=== PATIENT | female | born 1930 | race Caucasian/White ===

== ENCOUNTER 2016-12-15 02:31 | Emergency (ER) | payer MEDICARE, OTHER ==
--- NOTE | ~2016-12-15 | CT16 ---
[facility] A Service [facility] RADIOLOGY TEXT RESULTS PATIENT: BRAD CARDONA LOCATION: SED : 30 UNIT #: [id number] AGE: [address]: Brandon Pride MD SEX: F ORDER DR: [id number] [address] [address] [id number] MR#: [id number] Acc #: [id number] NAME: BRAD CARDONA : 1930 SEX: F STUDY DATE/TIME: 12/15/2016 3:44 UNIT: SED ROOM: STUDY DESCRIPTION: CT Angio Chest for PE Attending Physician: Brandon Pride M.D. Ordering Physician: Brandon Pride M.D. Primary Care Physician: Qasim Shah M.D. MEDICAL IMAGING REPORT This report is preliminary unless electronic signature is present. EXAM CT chest with pulmonary embolism protocol. HISTORY Chest tightness and shortness of air and pain in shoulder blades for 1 week which is worse tonight. TECHNIQUE The patient was given 80 mL of Isovue-370 and spiral imaging was performed through the chest. 3-D reconstructions of the pulmonary arteries were generated. This CT exam was performed with one or more of the following radiation dose reduction techniques: automatic exposure control, adjustment of mA and/or kV according to patient size, and iterative reconstruction. FINDINGS There is mild interstitial prominence present and there is a calcified granuloma in the right lung. There is minimal fluid in the major fissure. There is adequate opacification of the pulmonary arteries and there is no CT evidence of pulmonary embolus. Aorta is normal in size and there is no dissection. The visualized portions of the upper abdomen shows mild enlargement of the mid aorta measuring about 3 cm in diameter. IMPRESSION 1. There is no CT evidence of pulmonary embolus. 2. There is mild interstitial prominence with a small right pleural effusion suggesting perhaps early CHF. 3. The lowest image of the study shows slight enlargement of the infrarenal aorta measuring 2.9 cm in diameter. [facility] A Service of [facility] RADIOLOGY TEXT RESULTS PATIENT: BRAD CARDONA LOCATION: [facility] : 30 UNIT #: [id number] AGE: [address]: Brandon Pride MD SEX: F ORDER DR: Dictated by... Hu Dorantes M.D. THIS IS AN ELECTRONICALLY VERIFIED REPORT Hu Dorantes M.D. at 12/15/2016 1:24 PM CODY/kemi TD: 12/15/2016 09:26 JOB #: [id number] MEDICAL IMAGING REPORT Page 1 of 1
--- NOTE | ~2016-12-15 | EKG ---
PATIENT: BRAD CARDONA UNIT #: [id number] Ventricular Rate: 75 BPM Atrial Rate: 75 BPM P-R Interval: 180 ms QRS Duration: 92 ms Q-T Interval: 396 ms QTC Calculation(Bezet): 442 ms P [place]: 64 degrees Calculated R [place]: 19 degrees Calculated T [place]: -101 degrees Diagnosis Line: Normal sinus rhythm Diagnosis Line: Marked ST abnormality, possible inferior Diagnosis Line: subendocardial injury Diagnosis Line: Abnormal ECG Diagnosis Line: Diagnosis Line: Confirmed by DELORES BASHIR MD ([id number]) on 12/25/2016 Diagnosis Line: 11:48:57 AM INTERPRETING MD: KRYSTEN MEZA
[~2016-12-15 02:31] MED LIST: ASPIRIN81 M2 PO; CARDIZEM CD180 M1 PO; KRILL OIL500 MG PO; LIPITOR40 MG PO; NATURAL VITA400 UNI2 PO; NEXIUM PO; SYNTHROID88 MCG PO; TOPROL XL PO; VOLTAREN100 GM TOP; WOMEN'S DAILY1 EACH PO; ZYRTEC10 M1 PO
[2016-12-15 02:34] LABS: BASOPHIL# 0.1 X10e3 (0-0.3); BASOPHIL% 0.9 % (0-2.5); EOSINOPHIL# 0.1 X10e3 (0-0.7); EOSINOPHIL% 0.7 % (0.0-7.0); HEMATOCRIT 22.3 % (35.0-45.0); HEMOGLOBIN 7.3 gm/dL (12.0-16.0); LYMPHOCYTE# 3.5 X10e3 (1.0-3.5); LYMPHOCYTE% 41.7 % (17.0-45.0); MEAN CELL VOLUME 90.5 FL (83-96); MEAN CORPUSCULAR HEMOGLOBIN 29.7 PG (28-34); MEAN CORPUSCULAR HGB CONC 32.8 g/dL (30-36); MEAN PLATELET VOLUME 8.1 FL (6.5-11.5); MONOCYTE# 0.7 X10e3 (0-1.0); MONOCYTE% 8.4 % (3.0-12.0); NEUTROPHIL# 4.1 X10e3 (1.5-7.1); NEUTROPHIL% 48.3 % (40-75); PLATELET COUNT 240 X10e3 (140-420); RED BLOOD COUNT 2.46 X10e (3.90-5.30); RED CELL DISTRIBUTION WIDTH 14.2 % (11.0-15.5); WHITE BLOOD COUNT 8.4 X10e3 (4.0-10.5)
[2016-12-15 02:35] LABS: DIFF IND YES; PROTHROMBIN TIME (PATIENT) 22.6 SECONDS (9.5-12.4)
[2016-12-15 02:37] LABS: POC - CKMB <1.0 ng/mL (0.0-7.9); POC - TROPONIN <0.05 ng/mL (<=0.05)
[2016-12-15] MEDS ORDERED: DILTIAZEM 24HR360 MG PO (02:42)
[2016-12-15 02:43] LABS: PARTIAL THROMBOPLASTIN TIME 32.1 SECONDS (25.6-38.1)
[2016-12-15 02:50] LABS: ALBUMIN SERUM 3.5 g/dL (3.5-5.0); BILIRUBIN, DIRECT 0.2 mg/dL (0.0-0.2); BILIRUBIN,INDIRECT 0.6 mg/dL (0.0-0.9); BILIRUBIN,TOTAL 0.8 mg/dL (0.2-2.0); BUN/CREATININE RATIO 28.88; CALCIUM SERUM 8.7 mg/dL (8.4-10.2); CREATININE SERUM 0.9 mg/dL (0.6-1.4); GLOM FILT RATE Estimated 57.9 mL/min (>60); MAGNESIUM 1.9 mg/dL (1.6-3.0); PROTEIN TOTAL SERUM 6.5 g/dL (6.0-8.3)
[2016-12-15 02:57] LABS: PLATELET ESTIMATE NORMAL (NORMAL)
[2016-12-15 02:58] LABS: ANISOCYTOSIS SL; HYPOCHROMIA SL; POIKILOCYTOSIS SL; POLYCHROMASIA SL
[2016-12-15 02:59] LABS: OVALOCYTES PRESENT
[2016-12-15 04:08] LABS: POC - CKMB <1.0 ng/mL (0.0-7.9); POC - TROPONIN <0.05 ng/mL (<=0.05)
== END 2016-12-15 04:55 | disposition home or self-care (01) ==
LOC: SED 02:31
PROVIDERS: Emergency Medicine
DX: R07.89 Other chest pain (principal); R06.02 Shortness of breath; M54.9 Dorsalgia, unspecified; D64.9 Anemia, unspecified; Z79.899 Other long term (current) drug therapy; Z79.82 Long term (current) use of aspirin
CPT/HCPCS: 36415; 71275; 80048; 80076; 82553; 83735; 83880; 84484; 85025; 85610; 85730; 93005; 96361; 96374; 96375; 99284; J1885; J2270; J2405; Q9967